=== PATIENT | male | born 1985 | race Two or more races ===

== ENCOUNTER 2020-02-15 19:42 | Emergency (ER) | payer OTHER ==
[~2020-02-15] VITALS: Ht 182.9 cm; Wt 86.0 kg
[2020-02-15 19:51] VITALS: BP 127/89
[2020-02-15] MEDS ORDERED: LIDOCAINE-MPF 1%, 5ML ONE ×2 (20:15→21:17)
[2020-02-15] MEDS ORDERED: DIPH,PERTUSS(ACELL),TET VAC/PF 0.5 ML IM-VACC ONE ×3 (20:17→20:30)
[2020-02-15] MEDS ORDERED: LIDOCAINE-MPF 1%, 5ML INFIL ONE (20:30)
--- NOTE | 2020-02-15 20:30 | NUR ---
LIDO AND SUTURE SET UP AT BEDSIDE.
--- NOTE | 2020-02-15 20:43 | NUR ---
PT TOLERATED IRRIGATION WELL. NAD NOTED. WOUND SCRUBBED WITH CLEAN GAUZE. AWAITING SUTURES.
[2020-02-15] MEDS ORDERED: NEOSPORIN OINT. PKT 1 PACKET ONE (21:21)
--- NOTE | 2020-02-15 21:44 | NUR ---
WOUND DRESSED BY EDKIMBERLEE.
== END 2020-02-15 21:46 | disposition home or self-care (01) ==
LOC: ED 20:13
DX: S61.012A Laceration without foreign body of left thumb without damage to nail, initial encounter (principal); W45.8XXA Other foreign body or object entering through skin, initial encounter; Y93.89 Activity, other specified; Y92.69 Other specified industrial and construction area as the place of occurrence of the external cause; Y99.8 Other external cause status
CPT/HCPCS: 12041; 90471; 90715; 99284